=== PATIENT | female | born 1990 | race American Indian/Alaskan Native ===

== ENCOUNTER 2016-10-16 05:20 | Emergency (ER) | payer OTHER ==
[2016-10-16 05:44] VITALS: BP 139/94
[2016-10-16 06:10] LABS: Basophils % (Auto) 0.6 % (0.0-1.8); Hematocrit 39.6 % (30.3-42.9); Hemoglobin 13.1 gm/dl (10.1-14.3); Mean Corpuscular HGB Conc 33 % (30-34); Mean Corpuscular Hemoglobin 27 pg (28-32); Mean Corpuscular Volume 83 fl (79-97); Platelet Count 325 K/mm3 (140-440); Red Blood Count 4.77 M/mm3 (3.65-5.03); Red Cell Distribution Width 14.8 % (13.2-15.2); White Blood Count 11.2 K/mm3 (4.5-11.0)
[2016-10-16 06:33] LABS: Alanine Aminotransferase 20 units/L (7-56); Albumin 4.4 g/dL (3.9-5); Albumin/Globulin Ratio 1.1 %; Alkaline Phosphatase 99 units/L (35-129); Anion Gap 21 mmol/L; Bilirubin,Total 0.2 mg/dL (0.1-1.2); Blood Urea Nitrogen 10 mg/dL (7-17); Calcium 9.6 mg/dL (8.4-10.2); Carbon Dioxide 24 mmol/L (22-30); Chloride 98.5 mmol/L (98-107); Glucose 137 mg/dL (65-100); Lipase 29 units/L (13-60); Potassium 4.1 mmol/L (3.6-5.0); Sodium 139 mmol/L (137-145); Total Protein 8.4 g/dL (6.3-8.2)
[2016-10-16 07:52] LABS: Bilirubin,Urine NEG (Negative); Blood,Urine SM (Negative); Ketones,Urine NEG (Negative); Leukocyte Esterase,Urine NEG (Negative); Mucus,Urine FEW /HPF; Nitrite,Urine NEG (Negative); Protein,Urine <15 mg/dL mg/dL (Negative); Urobilinogen,Urine < 2.0 mg/dL (<2.0); WBC,Urine < 1.0 /HPF (0.0-6.0)
--- NOTE | 2016-10-17 09:20 | ED Elopement Review ---
ED Pt Elopement review - Results review Lab results: Laboratory Tests 10/16/16 10/16/16 10/16/16 05:46 05:46 07:13 WBC 11.2 H RBC 4.77 Hgb 13.1 Hct 39.6 MCV 83 MCH 27 L MCHC 33 RDW 14.8 Plt Count 325 Lymph % (Auto) 28.0 [place] % (Auto) 10.0 H Eos % (Auto) 2.0 Baso % (Auto) 0.6 Lymph # 3.1 [place] # 1.1 H Eos # 0.2 Baso # 0.1 Seg Neutrophils % 59.4 Seg Neutrophils # 6.6 Sodium 139 Potassium 4.1 Chloride 98.5 Carbon Dioxide 24 Anion Gap 21 BUN 10 Creatinine 0.8 Estimated GFR > 60 BUN/Creatinine Ratio 12.50 Glucose 137 H Calcium 9.6 Total Bilirubin 0.2 AST 17 ALT 20 Alkaline Phosphatase 99 Total Protein 8.4 H Albumin 4.4 Albumin/Globulin Ratio 1.1 Lipase 29 Urine Color Straw Urine Turbidity Clear Urine pH 6.0 Ur Specific [place] 1.006 Urine Protein <15 mg/dl Urine Glucose (UA) Neg Urine Ketones Neg Urine Blood Sm Urine Nitrite Neg Urine Bilirubin Neg Urine Urobilinogen < 2.0 Ur Leukocyte Esterase Neg Urine WBC (Auto) < 1.0 Urine RBC (Auto) 2.0 U Epithel Cells (Auto) < 1.0 Urine Mucus Few - Call Back decision Pt Call Back Decision: No action required
== END 2016-10-16 06:00 | disposition left against medical advice (07) ==
LOC: ED 05:20
DX: R06.00 Dyspnea, unspecified (principal); R19.7 Diarrhea, unspecified; R07.9 Chest pain, unspecified; R10.30 Lower abdominal pain, unspecified; Z53.21 Procedure and treatment not carried out due to patient leaving prior to being seen by health care provider
CPT/HCPCS: 36415; 80053; 81001; 83690; 85025; 93005; 93010